=== PATIENT | female | born 1975 | race Caucasian/White ===

== ENCOUNTER 2018-01-10 07:54 | Day surgery (SDC) | payer BC ==
[~2018-01-10] VITALS: Ht 167.6 cm; Wt 61.2 kg
[~2018-01-10 07:54] MED LIST: CEFAZOLIN SOD 1 GM/ ISO 50 ML PREMIX IV ONE
[2018-01-10] MEDS ORDERED: LR 1,000 ML IV.SOLN IV ONE (10:55)
[2018-01-10] MEDS ORDERED: SEVOFLURANE 15 MIN GAS INH ONE (10:55)
[2018-01-10] MEDS ORDERED: fentaNYL CITRATE/PF 100 MCG/2 ML AMP IVP ONE (10:55)
[2018-01-10] MEDS ORDERED: MIDAZOLAM HCL 5 MG/5 ML VIAL IVP ONE (10:55)
[2018-01-10] MEDS ORDERED: PROPOFOL 200MG/ 20ML VIAL (DIPRIVAN) IV ONE (10:55)
[2018-01-10] MEDS ORDERED: GLYCOPYRROLATE 0.2 MG/ML VIAL IJ ONE (10:55)
[2018-01-10] MEDS ORDERED: KETOROLAC TROMETHAMINE 30 MG VIAL IVP ONE (10:55)
[2018-01-10] MEDS ORDERED: NS 1000 ML IV.SOLN IV ONE (10:55)
[2018-01-10] MEDS ORDERED: ONDANSETRON HCL 4 MG/2 ML VIAL IVP ONE (10:55)
[2018-01-10] MEDS ORDERED: BUPIVACAINE /EPINEPHRINE/PF 0.5% 30 ML VIAL INJ ONE (10:55)
[2018-01-10] MEDS ORDERED: NEOSTIGMINE METHYLSULFATE 1 MG/ML, 10 ML VIAL IVP ONE (10:55)
[2018-01-10] MEDS ORDERED: ROCURONIUM BROMIDE 10 MG/ML (ZEMURON) IV ONE (10:55)
[2018-01-10] MEDS ORDERED: LR 1,000 ML IV SCH (12:05)
[2018-01-10] MEDS ORDERED: METOCLOPRAMIDE HCL 10 MG/2 ML VIAL IVP PRN (12:15)
[2018-01-10] MEDS ORDERED: MORPHINE 4 MG/ML INJ. SYRINGE IVP PRN ×3 (12:15)
[2018-01-10] MEDS ORDERED: HYDROcodone/ACETAMIN 5-325 MG TAB (NORCO/ VICODIN) PO PRN (12:30)
[2018-01-10] MEDS ORDERED: ONDANSETRON HCL 4 MG/2 ML VIAL IVP PRN (12:30)
[2018-01-10] MEDS ORDERED: OXYCODONE/ACETAMINOPHEN 5-325 TABLET PO PRN ×2 (12:30)
[2018-01-10] MEDS ORDERED: MORPHINE 4 MG/ML INJ. SYRINGE ONE (12:39)
[2018-01-10] MEDS ORDERED: MEPERIDINE HCL/PF 25 MG/ML DISP.SYRIN ONE (12:58)
[2018-01-10] MEDS ORDERED: MEPERIDINE HCL/PF 25 MG/ML DISP.SYRIN IVP ONE (13:00)
[2018-01-10] MEDS ORDERED: OXYCODONE/ACETAMINOPHEN 5-325 TABLET ONE ×2 (14:33→17:46)
[2018-01-10 15:37] VITALS: BP_SYST 114
== END 2018-01-10 18:40 | disposition home or self-care (01) ==
LOC: SDS 07:54 → SMU 07:55 → SDS 18:40
PROVIDERS: ATTEND Specialist
DX: N80.1 Endometriosis of ovary (principal); N80.0 Endometriosis of uterus; E03.9 Hypothyroidism, unspecified; Z98.890 Other specified postprocedural states; Z79.899 Other long term (current) drug therapy; R00.1 Bradycardia, unspecified
CPT/HCPCS: 58662; C1727; J0690; J1885; J2250; J2270; J2405; J2704; J2710; J3010; J3490 ×2; J7030; J7120; J2175